=== PATIENT | female | born 1955 | race Two or more races ===

== ENCOUNTER 2017-06-06 04:15 | Emergency (ER) | payer MEDICAID ==
[~2017-06-06] VITALS: Ht 149.9 cm; Wt 54.0 kg
[2017-06-06 04:17] VITALS: BP 156/99
[2017-06-06] MEDS ORDERED: VITAMIN D (04:27)
[2017-06-06] MEDS ORDERED: METF500T4 PO (04:27)
[2017-06-06] MEDS ORDERED: IBUP-1223 PO (04:27)
[2017-06-06] MEDS ORDERED: BLOOD PRESSURE MEDS (04:27)
[2017-06-06] MEDS ORDERED: GLIP10TA13 PO (04:27)
[2017-06-06] MEDS ORDERED: ASPI-515 PO (04:27)
[2017-06-06] MEDS ORDERED: OXYMETAZOLINE NASAL SPRAY 0.05%, 15ML ONE (04:31)
[2017-06-06] MEDS ORDERED: BACITRACIN ZINC OINT 500U/GM, 0.9 GM ONE (04:42)
== END 2017-06-06 05:00 | disposition home or self-care (01) ==
LOC: ED 04:54
DX: R04.0 Epistaxis (principal)
CPT/HCPCS: 99281